=== PATIENT | male | born 2000 | race Caucasian/White ===

== ENCOUNTER 2020-01-31 05:03 | Emergency (ER) | payer SELFPAY ==
[~2020-01-31] VITALS: Ht 182.9 cm; Wt 59.1 kg
[2020-01-31 05:07] VITALS: TEMP 97.9
[2020-01-31 12:50] VITALS: BP 111/84; PULSE 83
== END 2020-01-31 13:17 | disposition home or self-care (01) ==
LOC: COL.ER 05:03
DX: F10.129 Alcohol abuse with intoxication, unspecified (principal); S00.12XA Contusion of left eyelid and periocular area, initial encounter; Y90.8 Blood alcohol level of 240 mg/100 ml or more; X58.XXXA Exposure to other specified factors, initial encounter
CPT/HCPCS: J2405; J7030